=== PATIENT | female | born 1990 | race American Indian/Alaskan Native ===

== ENCOUNTER 2016-12-28 04:21 | Emergency (ER) | payer OTHER ==
[2016-12-28] MEDS ORDERED: MORPHINE IM ONE (04:45)
[2016-12-28] MEDS ORDERED: ZOFRAN ODT PO ONE (04:46)
[2016-12-28 05:18] LABS: Hematocrit 27.1 % (30.3-42.9); Hemoglobin 8.2 gm/dl (10.1-14.3); Mean Corpuscular HGB Conc 30 % (30-34); Platelet Count 387 K/mm3 (140-440); Red Blood Count 4.29 M/mm3 (3.65-5.03); Red Cell Distribution Width 18.9 % (13.2-15.2); White Blood Count 10.7 K/mm3 (4.5-11.0)
[2016-12-28 05:20] LABS: Mean Corpuscular Hemoglobin 19 pg (28-32); Mean Corpuscular Volume 63 fl (79-97)
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
[2016-12-28 05:50] LABS: Anion Gap 17 mmol/L; Blood Urea Nitrogen 9 mg/dL (7-17); Calcium 8.9 mg/dL (8.4-10.2); Carbon Dioxide 23 mmol/L (22-30); Chloride 104.8 mmol/L (98-107); Glucose 84 mg/dL (65-100); Sodium 141 mmol/L (137-145)
--- NOTE | 2016-12-28 06:28 | Cat Scan Report ---
FINAL REPORT EXAM: CT HEAD/BRAIN WO CON HISTORY: headache TECHNIQUE: CT of the head was performed. No intravenous contrast was administered. PRIORS: None. FINDINGS: There is no evidence of intracranial hemorrhage. There is no edema, mass effect or midline shift. There are no abnormal extra-axial fluid collections. The ventricles are appropriate for brain volume. There is no skull fracture seen. The visualized aspects of the sinuses are clear. IMPRESSION: There is no acute intracranial abnormality identified.
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
[2016-12-28] MEDS ORDERED: MORPHINE IV ONE (06:50)
[2016-12-28] MEDS ORDERED: ZOFRAN IV ONE (06:50)
[2016-12-28 07:03] VITALS: BP 107/64
--- NOTE | 2016-12-28 07:21 | XRay Report ---
THORACIC SPINE, 3 VIEWS History: Upper back pain. Findings: No comparison. There is normal bone mineralization. Mild dextroscoliosis in the lower thoracic spine and compensatory levoscoliosis in the lumbar spine are noted. There is no evidence for compression deformity, subluxation or bone lesion. The posterior ribs are grossly intact. No significant degenerative changes. Impression: Scoliosis.
--- NOTE | 2016-12-28 07:22 | XRay Report ---
AP CHEST: HISTORY: chest pain AP view of the chest demonstrates a normal mediastinal and cardiac contour with clear lungs and normal bony and soft tissue structures. Scoliosis is noted. IMPRESSION: Unremarkable AP chest.
== END 2016-12-28 07:30 | disposition home or self-care (01) ==
LOC: ED 04:21
DX: M54.2 Cervicalgia (principal); M54.6 Pain in thoracic spine; R07.9 Chest pain, unspecified; G44.319 Acute post-traumatic headache, not intractable; V89.2XXA Person injured in unspecified motor-vehicle accident, traffic, initial encounter; Y92.488 Other paved roadways as the place of occurrence of the external cause; Y93.89 Activity, other specified; Y99.8 Other external cause status
CPT/HCPCS: 36415; 70450; 71010; 72072; 72125; 80048; 84484; 84703; 85027; 93005; 93010; 96372; 96374; 96375; 99285; J2270; J2405; Q0162